=== PATIENT | male | born 1955 | race Caucasian/White ===

== ENCOUNTER → 2016-07-27 | Day surgery (SDC) | payer BC ==
[~2016-07-27] VITALS: Ht 177.8 cm; Wt 91.3 kg
[~2016-07-27] MED LIST: AMLO1CAP14 PO; ATEN50TA PO; DEXL60CA2 PO; LOSA1TAB19 PO; NIAC1TBM PO; PROPOFOL 20 ML ONE; PROPOFOL 40 ML ONE; ROSU5TAB5 PO; TRIPLEX PO
[2016-07-27 14:47] VITALS: Ht 177.8 cm; Wt 91.3 kg
[2016-07-27 15:14] VITALS: BP 147/83; PULSE 59; RESP 18
[2016-07-27 17:46] VITALS: BP 103/69; RESP 20
--- NOTE | 2016-07-27 18:31 | GILP ---
DATE OF PROCEDURE: 07/27/2016 NAME OF PROCEDURES: 1. Esophagogastroduodenoscopy and biopsy. 2. Colonoscopy and biopsy. SURGEON: Chi Bonner MD PREOPERATIVE DIAGNOSES: 1. Abdominal pain. 2. Chronic heartburn. 3. Change in bowel habit. 4. History of colon polyps. POSTOPERATIVE DIAGNOSES: 1. Hiatal hernia. 2. Gastroesophageal reflux disease. 3. Gastritis. 4. Gastric mucosal biopsies were taken for Helicobacter pylori test. 5. Bile reflux. 6. Colonoscopy all the way to the cecum. 7. Three small colon polyps were removed using the biopsy forceps. 8. Mild diverticulosis of the colon. 9. Internal and external hemorrhoids. INDICATION FOR THE PROCEDURE: Mr. Ovidio Denney is a 60-year-old male patient who had upper abdomin al pain and chronic heartburn, not responding to therapy. Patient also noticed a change in the cheri l habit. He had history of colon polyps. Patient was scheduled for endoscopy and colonoscopy for f urther evaluation. The procedures and possible complications were well explained to the patient, he understood and cons ented to the procedure. DESCRIPTION OF PROCEDURE: Under the influence of anesthesia, the gastroscope was carefully introduc ed into the esophagus and under direct vision, it was advanced to the stomach and through the pyloru s into the duodenal bulb and descending duodenum. FINDINGS: ESOPHAGUS: The patient had a small hiatal hernia and gastroesophageal reflux disease. STOMACH: He had gastritis. He also had bile reflux. Gastric mucosal biopsies were taken for H. p ylori test. DUODENUM: Normal. The colonoscope was carefully introduced in the rectum and under direct vision, it was advanced all the way to the cecum. FINDINGS: The patient had 3 small colon polyps and they were removed using the biopsy forceps. He was noted to have mild diverticulosis of the colon. He also had internal and external hemorrhoids. He tolerated the procedures very well and there was no complication from the procedures. At the end of the procedures, he was awake with stable vital signs and he was discharged home to the care of h is family. IMPRESSION: Please see postoperative diagnosis. PLAN: 1. Continue Dexilant and MiraLax. 2. Await histopathology reports. Next screening colonoscopy in 5 years. Dictated By: CHI LANDEROS/NTS Conf#: [id number] DID#: [id number]
== END | disposition home or self-care (01) ==
LOC: GIL 14:03
PROVIDERS: ATTEND Internal Medicine Gastroenterology
DX: K44.9 Diaphragmatic hernia without obstruction or gangrene (principal); K21.9 Gastro-esophageal reflux disease without esophagitis; K29.70 Gastritis, unspecified, without bleeding; K63.5 Polyp of colon; K57.90 Diverticulosis of intestine, part unspecified, without perforation or abscess without bleeding; K64.4 Residual hemorrhoidal skin tags; K64.8 Other hemorrhoids; I10 Essential (primary) hypertension; E66.9 Obesity, unspecified; Z68.28 Body mass index [BMI] 28.0-28.9, adult